=== PATIENT | female | born 1940 | race Caucasian/White ===

== ENCOUNTER → 2023-07-10 10:11 | Outpatient (REF) | payer MEDICARE, SELFPAY | LOC: HWRAD 10:11 | PROVIDERS: ATTENDING PHYSICIAN Internal Medicine Critical Care Medicine; FAMILY PHYSICIAN Family Medicine | DX: R91.8 Other nonspecific abnormal finding of lung field (principal); R93.89 Abnormal findings on diagnostic imaging of other specified body structures | CPT/HCPCS: 71250 ==

== ENCOUNTER → 2023-10-11 10:14 | Outpatient (REF) | payer MEDICARE, SELFPAY | LOC: HWRAD 10:14 | PROVIDERS: ATTENDING PHYSICIAN Internal Medicine Critical Care Medicine; FAMILY PHYSICIAN Family Medicine; REFERRING PHYSICIAN Internal Medicine Cardiovascular Disease | DX: R91.8 Other nonspecific abnormal finding of lung field (principal) | CPT/HCPCS: 71250 ==

== ENCOUNTER → 2024-04-11 10:13 | Outpatient (REF) | payer MEDICARE, SELFPAY | LOC: HWRAD 10:13 | PROVIDERS: ATTENDING PHYSICIAN Internal Medicine Critical Care Medicine; FAMILY PHYSICIAN Internal Medicine | DX: R91.8 Other nonspecific abnormal finding of lung field (principal) | CPT/HCPCS: 71250 ==

== ENCOUNTER → 2024-07-14 10:15 | Outpatient (REF) | payer MEDICARE, SELFPAY | LOC: HWRAD 10:15 | PROVIDERS: ATTENDING PHYSICIAN Internal Medicine Critical Care Medicine; FAMILY PHYSICIAN Internal Medicine | DX: R91.8 Other nonspecific abnormal finding of lung field (principal) | CPT/HCPCS: 71250 ==

== ENCOUNTER 2024-08-19 08:16 | Inpatient (IN) | payer MEDICARE, SELFPAY ==
[2024-08-11 14:01] VITALS: BMI 17.8
[2024-08-18] VITALS (29 sets, daily range): BP systolic 64–134; BP diastolic 44–90; BMI 17.8
[2024-08-18 10:26] LABS: Glucose - Point of Care 115 mg/dl (70-99)
[2024-08-18] MEDS: ZOFRAN 4 MG IV (11:55)
[2024-08-18] MEDS: OFIRMEV 100 IV (12:15)
[2024-08-18 12:41] LABS: Glucose - Point of Care 116 mg/dl (70-99)
[2024-08-18] MEDS: DUONEB 3 ML INH (17:36)
[2024-08-18] MEDS: PULMICORT 0.5 MG INH (17:37)
--- NOTE | 2024-08-18 19:47 | HPS.HSE ---
Family Physician
-
Family Physician: NO INTERVIEW UNKNOWN
Chief Complaint
-
SOB
History of Present Illness
Patient is an 84y F with PMH significant for COPD, ASCVD and DM-II who presents to for bronchoscopy / biopsy of suspicious CYNTHIA lesion. Patient notes that she has been following the lesion radiographically for > 20 years. Recently it increased
in size and was positive on PET scan. Patient was scheduled for robotic bronchoscopy with biopsy which was done today. Following the procedure, patient c/o SOB and was noted to be hypoxemic into the 80s. CXR showed moderate sized L pneumothorax.
IR evaluated the patient and aspirated the pneumothorax. No chest tube / catheter was maintained due to patient request.
Patient seen and examined in the PACU. She is resting comfortably. She complains of some discomfort in the L chest at the site of thoracentesis.
She denies any dyspnea. No recent cough, fevers / chills, etc.
Medical History
Past Medical History
Past Medical History: Reports Other
Additional Past Medical History:
ASCVD
Hypertension
DM-II
COPD
Diverticular Disease
Osteoporosis
GERD
Past Surgical History: Reports Other
Additional Past Surgical History:
Robotic Bronchoscopy with CYNTHIA Biopsy (08/18/24)
MACKENZIE / BSO
Appendectomy
Cholecystectomy
Left Foot ORIF
Pilonidal Cyst Excision
PTCA with Stent
Cataracts
Social History
Tobacco: Former Smoker (Quit smoking in 2008. > 40 pack years total use.)
Alcohol: Daily (1 glass wine daily.)
Drug: None
Family History
Family History: Other (Father: COPD Sister: Lung Cancer)
Allergies / Home Medications
Allergies reflects when Allergies were last updated in [facility].
Home Medications with original date entered in [facility]
Allergy/Medication List:
Allergies
Allergy/AdvReac Type Severity Reaction Status Date / Time
adhesive Allergy Peels Skin Verified 08/18/24 09:36
azithromycin [From Zithromax] Allergy Itching, Verified 08/18/24 09:36
Rash
latex Allergy Itching, Verified 08/18/24 09:36
Rash
levofloxacin [From Levaquin] Allergy Tendon Verified 08/18/24 09:36
Detachement
Penicillins Allergy Itching Verified 08/18/24 09:36
Home Medications
albuterol sulfate 90 mcg/actuation aerosol inhaler 2 puff inhalation PRN PRN SOB, Wheezes 08/12/24
biotin 5,000 mcg chewable tablet 25,000 mcg PO DAILY 08/12/24
budesonide-formoterol HFA 160 mcg-4.5 mcg/actuation aerosol inhaler (Symbicort) 2 puff inhalation BID 08/12/24
calcium carbonate (Tums) 200 mg PO PRN PRN GERD 08/12/24
cetirizine 10 mg tablet (Zyrtec) 10 mg PO HS 08/12/24
cholecalciferol (vitamin D3) 25 mcg (1,000 unit) tablet (Vitamin D3) 50 mcg PO DAILY 08/12/24
multivitamin 1 tab PO DAILY 08/12/24
pravastatin 10 mg tablet 10 mg PO HS 08/12/24
ramipril 2.5 mg capsule 2.5 mg PO HS 08/12/24
turmeric root extract 150 mg-cisco root extract 25 mg chewable tablet 3 tab PO DAILY 08/12/24
vit C 250 mg-vit E 90 mg-zinc 40 mg-copper 1 [id number] capsule (PreserVision AREDS-2) 1 tab PO BID 08/12/24
vitamin C 90 mg-zinc gluconate 15 mg-herbal complex no. 325 lozenges 1 shayne PO DAILY 08/12/24
Review of Systems
-
History Source: Patient
A 12 point ROS was completed and negative except as noted: Yes
Constitutional: Denies Fever, Fatigue or Chills
EENT: Denies Sore Throat
Respiratory: Denies Cough, Hemoptysis or Trouble Breathing
Cardiac: Reports Chest Pain; Denies Diaphoresis, Palpitations or Syncope
Abdomen/GI: Denies Abdominal Pain, Nausea, Vomiting or Diarrhea
: Denies Dysuria, Frequency or Flank Pain
Musculoskeletal: Denies Joint Pain or Edema
Neurological: Denies Dizzy or Headache
Physical Exam
Vital Signs
Vital Signs
Temp Pulse Resp BP Pulse Ox
98.9 F 91 20 132/62 92
08/18/24 17:50 08/18/24 17:37 08/18/24 17:37 08/18/24 17:30 08/18/24 18:50
Physical Exam
General: Other (84y F in no distress.)
HEENT: Moist mucous membranes and PERRLA
Respiratory: Clear; No Wheezes, Rales or Rhonchi
Cardiac: S1/S2 and Regular Rhythm; No Murmur
GI: Soft, Non Tender, Non Distended and Normal Bowel Sounds
Musculoskeletal: No Clubbing, No Cyanosis and No Edema
Neuro: AO x 3
Impression/Plan
-
A/P: Patient is an 84y F with PMH significant for ASCVD, HTN and DM-II who presents to for bronchoscopy and biopsy and developed post-procedure pneumothorax and hypoxemia.
s/p Robotic Bronchoscopy with CYNTHIA Biopsy
Post-Procedure Left Pneumothorax
Acute Hypoxemic Respiratory Insufficiency secondary to the above
- Observe overnight for further monitoring / treatment.
- Patient requested not to have chest tube / drainage catheter left in place after thoracentesis.
- Repeat CXR at 10PM this evening and in AM to document stability.
- Repeat imaging sooner if any increase in CP, dyspnea, etc.
- Supplemental O2 use.
COPD
- No active wheezing on exam.
- Patient reports that her baseline O2 has been high 90s - but falls to 87% with activity.
- Continue Symbicort.
- Albuterol PRN.
ASCVD
- Stable. No chest pain / dyspnea.
- Continue current CV med regimen.
DM-II
- Stable. Patient is not on any DM medications.
- Follow glucose and cover with SSI if needed.
- Update A1C.
DVT Prophylaxis: SCDs
Code Status: Full
[2024-08-18] MEDS: SYMBICORT 160/4.5 MCG INHALER 2 PUFF INH (20:35)
[2024-08-18] MEDS: TYLENOL 650 MG PO (20:55)
[2024-08-18] MEDS: ALTACE 2.5 MG PO (21:19)
[2024-08-18] MEDS: PRAVACHOL 10 MG PO (21:19)
[2024-08-18] MEDS: ZYRTEC 10 MG PO (21:20)
[2024-08-18] MEDS: TYLENOL 325 MG PO (23:51)
[2024-08-19 03:30] VITALS: BP 122/44
[2024-08-19] MEDS: VENTOLIN NEBULES 2.5 MG INH ×2 (03:40→19:31)
--- NOTE | 2024-08-19 03:40 | PTCARENOTE ---
20:15 08/18/24 pt rec'vd from PACU x3 with [address] via NC, pt able to self transfer to unit bed. Left upper side of back noted with a small foam with a pinpoint staining observed. Pt denies discomfort at this time, vs WNL.
[2024-08-19] MEDS: TYLENOL 650 MG PO ×2 (04:28→21:57)
[2024-08-19] MEDS: BenGay-Like 1 APPLIC TOPICAL ×3 (04:29→21:58)
[2024-08-19 06:00] VITALS: BMI 17.9
[2024-08-19 06:42] LABS: Hematocrit 34.5 % (37.0-47.0); Hemoglobin 11.7 g/dL (12.0-16.0); Mean Corp Hgb Conc. 33.9 g/dL (33.0-37.0); Mean Corpuscular Hgb 31.6 pg (27.0-31.0); Mean Corpuscular Volume 93.2 fL (81.0-99.0); Mean Platelet Volume 9.5 fL (7.4-10.4); Platelet Count 196 10^3/uL (130-400); Red Cell Dist. Width 12.9 % (11.5-14.5); White Blood Cell Count 9.7 10^3/uL (4.8-10.8)
[2024-08-19 07:01] LABS: Blood Urea Nitrogen 12 mg/dl (7-17); Calcium 8.9 mg/dl (8.4-10.2); Carbon Dioxide 28 mmol/L (22-30); Chloride 102 mmol/L (98-107); Estimated Creatinine Clearance 49 ml/min; Glucose 100 mg/dl (70-99); Sodium 135 mmol/L (135-145); eGFR > 60.00
[2024-08-19] MEDS: SYMBICORT 160/4.5 MCG INHALER 2 PUFF INH ×2 (07:22→19:31)
[2024-08-19 07:28] VITALS: BP 122/64
--- NOTE | 2024-08-19 08:34 | CM ---
CM reviewed medical records. Patient lives independently in a third floor apartment. Patient does not have ahistory of VN, SNF or DME. Patient is active with her PCP. Patient will use [facility] for medication services.
Patient's son is at bedside and stated that he lives 4 miles away and will provide support if needed. CM will continue to follow for needs.
PLAN: home with vn vs. Home with no needs.
[2024-08-19 08:41] LABS: Glucose - Point of Care 221 mg/dl (70-99)
[2024-08-19 09:22] LABS: Glycohemoglobin (HgbA1c) 5.7 % (4.0-5.6)
--- NOTE | 2024-08-19 11:15 | PTCARENOTE ---
Addendum entered by Mariposa Silverman RN 08/19/24 12:14:
08/19- Obtained 12lead EKG. 2EKGs showed Sinus Bradycardia with PVCs and PACs. PVCs and PACs observed in lateral leads. Physician aware.
Original Note:
08/19- Patient is anxious d/t not having her 'stack of credit cards and ID in the rubber band.' We found her cards and money in her purse a couple minutes later. Patient sustained VTach for 13 seconds on Telemetry which self-resolved to Sinus Tachy
within 20 seconds and back to NSR within 30seconds. Patient states being a little SOB but denies CP or dizziness/lightheadedness. AAOX3 but anxious. Educated on calming techniques, deep slow breathing. HR currently 89 NSR. Notified Physician.
Continue to monitor.
[2024-08-19 11:16] VITALS: BP 112/48
[2024-08-19 12:03] LABS: Glucose - Point of Care 110 mg/dl (70-99)
--- NOTE | 2024-08-19 12:16 | CON.PUL ---
Consultation
Consultation Request
Date/Time Consultation Requested: 08/19/2024
Date/Time Consultation Performed: 08/19/2024
Requesting Provider: Dr. Worthy
Performing Provider: Dr. Baron Olmos
Reason for Consultation: Left iatrogenic pneumothorax post bronchoscopy
Medical History
-
History of Present Illness:
84-year-old woman with history of COPD, coronary artery disease, type 2 diabetes who presented to [facility] for bronchoscopy for left upper lobe lung mass. Patient follows up with Dr. Salgado in our office. Lung nodule has been grown
recently. PET/CT showed FDG avidity. Bronchoscopy underwent on 08/18/2024. Postprocedure hypoxemic and short of breath. Found to have a at least moderate left pneumothorax. Evaluated by interventional radiology and underwent aspiration of the
pneumothorax.
Patient declined chest tube placement.
Currently denies any shortness of breath at rest.
She was able to ambulate to the restroom without significant discomfort.
Denies any chest pain per
Denies cough or phlegm production.
Past Medical History
Past Medical History: Other (See assessment and plan)
Social History
Tobacco: Former Smoker (Quit in April 2008. 40-qiow-edpb history.)
Alcohol: Daily (Right groin daily.)
Drug: None
Personal:
Employment: Retired
Family History
Family History: Reviewed & Not Pertinent
Allergies / Home Medications
Allergies
Allergy/AdvReac Type Severity Reaction Status Date / Time
adhesive Allergy Peels Skin Verified 08/18/24 09:36
azithromycin [From Zithromax] Allergy Itching, Verified 08/18/24 09:36
Rash
latex Allergy Itching, Verified 08/18/24 09:36
Rash
levofloxacin [From Levaquin] Allergy Tendon Verified 08/18/24 09:36
Detachement
Penicillins Allergy Itching Verified 08/18/24 09:36
Home Medications
�Medication �Instructions �Recorded �Confirmed �Last Taken �Type
albuterol sulfate 90 mcg/actuation 2 puff inhalation PRN PRN SOB, 08/12/24 08/18/24 08/18/24 08:30 History
aerosol inhaler Wheezes
biotin 5,000 mcg chewable tablet 25,000 mcg PO DAILY 08/12/24 08/18/24 08/11/24 History
budesonide-formoterol HFA 160 2 puff inhalation BID 08/12/24 08/18/24 08/18/24 08:30 History
mcg-4.5 mcg/actuation aerosol
inhaler (Symbicort)
calcium carbonate (Tums) 200 mg PO PRN PRN GERD 08/12/24 08/18/24 Unknown History
cetirizine 10 mg tablet (Zyrtec) 10 mg PO HS 08/12/24 08/18/24 08/17/24 19:30 History
cholecalciferol (vitamin D3) 25 50 mcg PO DAILY 08/12/24 08/18/24 08/11/24 History
mcg (1,000 unit) tablet (Vitamin
D3)
multivitamin 1 tab PO DAILY 08/12/24 08/18/24 08/11/24 History
pravastatin 10 mg tablet 10 mg PO HS 08/12/24 08/18/24 08/17/24 19:30 History
ramipril 2.5 mg capsule 2.5 mg PO HS 08/12/24 08/18/24 08/17/24 19:30 History
turmeric root extract 150 3 tab PO DAILY 08/12/24 08/18/24 08/11/24 History
mg-cisco root extract 25 mg
chewable tablet
vit C 250 mg-vit E 90 mg-zinc 40 1 tab PO BID 08/12/24 08/18/24 08/11/24 History
mg-copper 1 [id number]
capsule (PreserVision AREDS-2)
vitamin C 90 mg-zinc gluconate 15 1 shayne PO DAILY 08/12/24 08/18/24 08/11/24 History
mg-herbal complex no. 325 lozenges
Review of Systems
-
History Source: Patient
All other systems: Negative unless noted
Vitals / Labs / Diagnostic Testing
Vital Signs
Temp Pulse Resp BP Pulse Ox
98.1 F 58 17 112/48 100
08/19/24 11:16 08/19/24 11:16 08/19/24 11:16 08/19/24 11:16 08/19/24 11:16
Lab Data
08/19/24 06:02
08/19/24 06:02
Microbiology
08/18/24 11:34 Bronch Left Upper Lobe Respiratory Culture - Preliminary
NO GROWTH
08/18/24 11:34 Bronch Left Upper Lobe Gram Stain - Preliminary
08/18/24 11:34 Bronch Right Upper Lobe Respiratory Culture - Preliminary
NO GROWTH
08/18/24 11:34 Bronch Right Upper Lobe Gram Stain - Preliminary
08/18/24 11:35 Bronch Right Upper Lobe Fungal Culture - Preliminary
Culture in progress.
Positive cultures are reported as soon as detected.
Final report to follow in four to five weeks.
08/18/24 11:35 Bronch Left Upper Lobe Fungal Culture - Preliminary
Culture in progress.
Positive cultures are reported as soon as detected.
Final report to follow in four to five weeks.
Diagnostic Testing:
Physical Exam
-
HEENT: Normocephalic
Cardiovascular: S1/S2
Respiratory: Non-Labored Respirations and Other (No evidence for subcutaneous air)
GI: Soft and Non Distended
Neurology: Awake, Alert and No Motor Deficits
Skin: Warm
General: Comfortable
Assessment
-
84-year-old woman with history of COPD, former smoker who follows up with Dr. Salgado in our office. Excellent functional capacity. On Symbicort. Quit smoking in 2008. Admitted 08/18/2024 after undergoing robotic bronchoscopy with left upper lobe
lung biopsy. Complicated by iatrogenic pneumothorax. Patient declined chest tube placement and pneumothorax was aspirated. I was consulted for further evaluation.
Left iatrogenic pneumothorax post bronchoscopy 08/18/2024
Status post pneumo centesis-patient declined chest tube placement.
Status post left upper lung biopsy via robotic bronchoscopy.
Official pathology pending-preliminarily malignant.
4R lymph node biopsy performed
Other stations not enlarged.
PET/CT 08/01/2024:
1.7 cm hypermetabolic mass within the left upper lobe-no evidence of mediastinal abnormalities.
5 mm nodule anterior medial right upper lobe very mild metabolic activity SUV of 2.3.
No suspicious hypermetabolic abnormality in the pelvis and abdomen.
Mild right-sided hydronephrosis.
Conditions present prior admission:
COPD, FEV1 08/29/2023: 1.57 L or 107% of predicted/TLC 108% predicted
RV 90% predicted, DLCO 37% of predicted.
GERD
Coronary artery disease with prior myocardial infarction-history of prior stents.
Echocardiogram 02/07/2023: Normal LVEF. Significant valvular abnormalities
Osteoporosis
GERD
Hypertension
Diabetic retinopathy
Type 2 diabetes
Macular degeneration
History of bilateral salpingo-oophorectomy
Assessment and plan:
Iatrogenic left-sided pneumothorax post bronchoscopy 08/18/2024.
Patient declined chest tube placement-IR evaluated the patient and she underwent minimal centesis.
Chest x-ray this morning with slight increase in pneumothorax were still persistent.
Not tachycardic, not hypotensive.
Did have some known SVT on telemetry with ambulation.
Pulse ox decreased to 88%. Likely related to pneumothorax on top of her severe emphysema.
Her diffusion capacity in 2023 was less than 40.
-
Preliminarily possible carcinoma.
Official pathology pending.
PET/CT does not suggest distant metastatic disease. This is a slow-growing tumor as has been followed for years and recently had some growth.
She will not be a surgical candidate given severity of emphysema and DLCO under 40%.
-
Patient has high risk of recurrence given underlying significant emphysema. Would like to observe for additional 24 hours-repeat chest x-ray now.
Serial chest x-rays ordered-obtain chest x-ray now and possibly tonight at 9 PM and tomorrow morning.
If there is enlargement of pneumothorax chest tube will be indicated.
Discussed with patient in detail, she is reluctant to chest tube placement. I explained to her and her family that this is a high risk situation given significant emphysema and limited pulmonary reserve.
She is more agreeable if absolutely necessary.
For now continue Oxy supplementation to hopefully help with the reabsorption of pneumothorax.
-
Cough suppression
Continue telemetry monitoring.
-
This is a h high risk situation as the risk of recurrence is very high with significant emphysema.
-
--- NOTE | 2024-08-19 13:28 | W.PN.HOSP.TC ---
Today's Communication/Plan
-
Assessment / Plan
Assessment / Plan
NAD
Scleral Anicteric
MMM
No JVD
Diminished breath sounds left side
Without evidence of subcutaneous air on exam
RRR, S1/S2
Soft, NT, ND, BS+
Warm, Dry
Posterior left shoulder cracking
AAOx3
Calm
Iatrogenic left-sided pneumothorax post bronchoscopy 08/18
- S/p thoracentesis with IR, refused chest tube, on supplemental oxygen
Started 100% FiO2 to attempt to perform some of the these bronchoscopy gases to help inflate left lung
Pulmonary consulted
Adamant about not wanting a chest tube
On ambulation decreases to 88% likely related to pneumothorax on top of severe emphysema
Did have a 12 beat run of none sustained VT with ambulation as well again likely related to pneumothorax on top of severe emphysema
Nonsustained VT�12 beat
Monitor on telemetry
2D echocardiogram
Keep K greater than 4 magnesium greater than 2
So this is likely secondary to pneumothorax
Pulmonary nodule/mass
S/p bronchoscopies 08/18
Findings concerning for likely malignancy/neoplasm
Diabetes type 2
Sliding scale, Accu-Cheks, goal blood glucose 140-180, carb controlled
COPD
No active wheezing
Continue Symbicort
As needed albuterol
Goal SpO2 88 to 92%
Left-sided shoulder pain
Obtain shoulder x-ray
Nasal congestion
Start nasal saline
Without evidence of rhinorrhea sinus pain/pressure
Anticipated Discharge: > 48 hours
Subjective/Interval History
-
Date of Service: August 19, 2024
Seen and examined.
No new complaints. No acute overnight events.
Sitting on the side of the bed on nasal cannula without evidence of conversational dyspnea she was able to hold a conversation for approximately 45 minutes with me
States that she does not want a chest tube was arguing about being on 100% FiO2. States that if this does not work then she si going to go home
Objective Data
-
Labs:
Laboratory Results
08/19/24
06:02
WBC 9.7
Hgb 11.7 L
Hct 34.5 L
Plt Count 196
Sodium 135
Potassium 4.0
Chloride 102
Carbon Dioxide 28
BUN 12
Creatinine 0.5 L
Glucose 100 H
Calcium 8.9
Vital Signs:
Vital Signs
Temp Pulse Resp BP Pulse Ox
98.1 F 58 17 112/48 100
08/19/24 11:16 08/19/24 11:16 08/19/24 11:16 08/19/24 11:16 08/19/24 11:16
I&O
08/18/24 08/19/24 08/20/24
06:59 06:59 06:59
Intake Total 480 / 480 1080 / 1080
Balance 480 / 480 1080 / 1080
[2024-08-19 15:18] VITALS: BP 137/57
[2024-08-19 15:59] LABS: Glucose - Point of Care 105 mg/dl (70-99)
[2024-08-19 19:15] VITALS: BP 133/60
[2024-08-19 21:50] LABS: Glucose - Point of Care 98 mg/dl (70-99)
[2024-08-19] MEDS: ZYRTEC 10 MG PO (21:58)
[2024-08-19] MEDS: PRAVACHOL 10 MG PO (21:58)
[2024-08-19] MEDS: ALTACE 2.5 MG PO (21:58)
[2024-08-19 23:32] VITALS: BP 124/57
[2024-08-20 03:15] VITALS: BP 126/50
[2024-08-20 06:00] VITALS: BMI 18.7
[2024-08-20 07:11] LABS: Hematocrit 38.1 % (37.0-47.0); Hemoglobin 12.9 g/dL (12.0-16.0); Mean Corp Hgb Conc. 33.9 g/dL (33.0-37.0); Mean Corpuscular Hgb 32.3 pg (27.0-31.0); Mean Corpuscular Volume 95.3 fL (81.0-99.0); Mean Platelet Volume 9.7 fL (7.4-10.4); Platelet Count 210 10^3/uL (130-400); White Blood Cell Count 7.6 10^3/uL (4.8-10.8)
[2024-08-20 07:20] VITALS: BP 139/60
[2024-08-20 07:27] LABS: Blood Urea Nitrogen 10 mg/dl (7-17); Calcium 8.9 mg/dl (8.4-10.2); Carbon Dioxide 27 mmol/L (22-30); Chloride 102 mmol/L (98-107); Estimated Creatinine Clearance 51 ml/min; Glucose 97 mg/dl (70-99); Potassium 4.1 mmol/L (3.5-5.1); Sodium 137 mmol/L (135-145); eGFR > 60.00
[2024-08-20] MEDS: SYMBICORT 160/4.5 MCG INHALER 2 PUFF INH (07:54)
[2024-08-20 08:08] LABS: Glucose - Point of Care 134 mg/dl (70-99)
[2024-08-20 11:10] VITALS: BP 127/76
--- NOTE | 2024-08-20 11:10 | RESPNOTE ---
Refusing non-rebreather mask at this time states ' it doesn't do me any good.' Explained the patient the reasoning behind the mask, she confirms she understands and her son is bedside. Dr Olmos notified and will reach out with further
recommendations. HERB Monge notified as well. Patient remains comfortable on 2 liters sitting in bed drinking coffee and eating fruit.
--- NOTE | 2024-08-20 11:53 | RESPNOTE ---
Patient now agreeable to non rebreather mask since I was able to find pediatric one. Patient was resting comfortable in bed on 2 liters -95%, when placed on non rebreather 100%. Family at bedside awaiting Pulmonary
--- NOTE | 2024-08-20 11:57 | PTCARENOTE ---
Dr. Worthy instructed RN to place patient on 100% non-rebreather despite patient be 95% on 2 L NC. Repiratory therapist made aware.
[2024-08-20 12:06] LABS: Glucose - Point of Care 137 mg/dl (70-99)
--- NOTE | 2024-08-20 12:56 | W.PN.PUL3 ---
Today's Communication / Plan
-
Discharge
Pneumothorax precautions given to patient. High risk of recurrence discussed with family in detail.
2-week follow-up with Dr. Salgado.
Sign off
Assessment
-
84-year-old woman with history of COPD, former smoker who follows up with Dr. Salgado in our office. Excellent functional capacity. On Symbicort. Quit smoking in 2008. Admitted 08/18/2024 after undergoing robotic bronchoscopy with left upper lobe
lung biopsy. Complicated by iatrogenic pneumothorax. Patient declined chest tube placement and pneumothorax was aspirated. I was consulted for further evaluation.
Left iatrogenic pneumothorax post bronchoscopy 08/18/2024
Status post pneumo centesis-patient declined chest tube placement.
Status post left upper lung biopsy via robotic bronchoscopy.
Official pathology pending-preliminarily malignant.
4R lymph node biopsy performed
Other stations not enlarged.
PET/CT 08/01/2024:
1.7 cm hypermetabolic mass within the left upper lobe-no evidence of mediastinal abnormalities.
5 mm nodule anterior medial right upper lobe very mild metabolic activity SUV of 2.3.
No suspicious hypermetabolic abnormality in the pelvis and abdomen.
Mild right-sided hydronephrosis.
Conditions present prior admission:
COPD, FEV1 08/29/2023: 1.57 L or 107% of predicted/TLC 108% predicted
RV 90% predicted, DLCO 37% of predicted.
GERD
Coronary artery disease with prior myocardial infarction-history of prior stents.
Echocardiogram 02/07/2023: Normal LVEF. Significant valvular abnormalities
Osteoporosis
GERD
Hypertension
Diabetic retinopathy
Type 2 diabetes
Macular degeneration
History of bilateral salpingo-oophorectomy
Assessment and plan:
Iatrogenic left-sided pneumothorax post bronchoscopy 08/18/2024.
Patient declined chest tube placement-IR evaluated the patient and she underwent minimal centesis.
Chest x-ray 08/19/2024 and 08/20/2024 with stable small left basilar pneumothorax.
No subcutaneous air
Not tachycardic, not hypotensive.
Denies shortness of breath.
Did have some known SVT on telemetry with ambulation.
-
Pulse ox has been over 90% on room air.
Oxygen has been provided to help with pneumothorax reabsorption.
-
Preliminarily possible carcinoma.
Official pathology pending as of 08/20/2024.
PET/CT does not suggest distant metastatic disease. This is a slow-growing tumor as has been followed for years and recently had some growth.
She will not be a surgical candidate given severity of emphysema and DLCO under 40%.
-
Patient has high risk of recurrence given underlying significant emphysema. Discussed with family members.
Chest x-ray has been stable for over 24 hours.
Patient is relatively asymptomatic send
She would like to go home.
Not tachycardic.
Not hypoxemic
Baseline functional capacity.
Advised not to exercise for at least 1 week. No prolonged walking, no straining.
I strongly advised family members to have someone move in with her for at least 3 to 4 days to assure that there is no reoccurrence.
If there is worsening shortness of breath, chest pain or any respiratory symptoms to immediately come to the emergency room for evaluation.
If there is pneumothorax recurrence patient will need a chest tube placement. She understands that and she is agreeable if there is recurrence.
-
Outpatient follow-up in [address] Salgado.
-
This is a h high risk situation as the risk of recurrence is very high with significant emphysema-patient and family understand.
Patient would like to go home
Okay to discharge today. Is with primary team.
-
Subjective Data
-
Date of Service:
Date of Service: August 20, 2024
Chief Complaint: Pulmonary Follow Up (Iatrogenic pneumothorax)
Subjective:
Asymptomatic-patient states that she is baseline.
No oxygen requirements
Denies chest pain
Was able to ambulate to the restroom without significant discomfort.
Review of Systems
Cardiopulmonary: Dyspnea (n) and Dyspnea on Exertion (n)
Objective Data
Data Reviewed
Vital Signs / I&O / Oxygen:
Vital Signs
Temp Pulse Resp BP Pulse Ox
97.9 F 67 18 127/76 95
08/20/24 11:10 08/20/24 11:10 08/20/24 11:10 08/20/24 11:10 08/20/24 11:10
Intake and Output
08/19/24 08/20/24 08/21/24
06:59 06:59 06:59
Intake Total 480 / 480 1360 / 1360 740 / 740
Balance 480 / 480 1360 / 1360 740 / 740
SaO2 95
Nasal Cannula flow liters per 2
minute
Labs/Micro/Reports
Lab Data
08/20/24 06:07
08/20/24 06:07
Microbiology
08/18/24 11:34 Bronch Right Upper Lobe Respiratory Culture - Final
NO GROWTH
08/18/24 11:34 Bronch Right Upper Lobe Gram Stain - Final
08/18/24 11:34 Bronch Left Upper Lobe Respiratory Culture - Final
NO GROWTH
08/18/24 11:34 Bronch Left Upper Lobe Gram Stain - Final
08/18/24 11:35 Bronch Right Upper Lobe Fungal Culture - Preliminary
Culture in progress.
Positive cultures are reported as soon as detected.
Final report to follow in four to five weeks.
08/18/24 11:35 Bronch Left Upper Lobe Fungal Culture - Preliminary
Culture in progress.
Positive cultures are reported as soon as detected.
Final report to follow in four to five weeks.
--- NOTE | 2024-08-20 13:38 | HOSPNOTE ---
Long discussion with family about code status and rehospitalization. At this time the patient wants to remain a full code and fully understands what that means. The plan is for patient to go home with VN/PT/OT. CM aware and will send referral. I
know this family personally and the son asked me to come and speak with patient.
--- NOTE | 2024-08-20 14:14 | CM ---
Cm met with patient. She is agreeable to [facility]. Referral sent to [facility] Admission RN>
PLAN: home with [facility] and family support.
--- NOTE | 2024-08-20 14:20 | W.DCSUMMARY ---
Discharge Summary
Discharge Data
Date of Admission: 08/19/24
Date of Discharge: 08/20/24
-
Pending Results: No
Hospital Course
84y F with PMH significant for COPD, CAD and DM-II
Presented with shortness of breath and hypoxia into the 80s after completing bronchoscopy with biopsy subsequently developing a left-sided pneumothorax. Was evaluated by IR in the ED performed in thoracentesis/aspiration of the left thoracic
cavity. Subsequent repeat chest x-rays continue to demonstrate small to moderate size left-sided pneumothorax. It was recommended for chest tube placement however adamantly declined and therefore was maintained on supplemental oxygen along with
100% FiO2 in order to help absorb the pneumothorax. Eventually supplemental oxygen was weaned off and did not require/qualify for home O2. Should be noted pulmonary and myself had multiple discussions about chest tube placement however adamantly
continued to decline. Additionally should be noted discussed possibilities of respiratory distress and cardiac arrest. Everyone understood the risk. Pulmonary even went on to say that there is a high risk of recurrence given underlying
significant emphysema. Chest x-ray has remained stable for over 24-hours. Additionally, had a run of nonsustained ventricular tachycardia that was likely believed to be secondary to pneumothorax. For complete is a 2D ultrasound of the heart was
completed that was a technically difficult study however normal left ventricular size and function with a EF of 55 to 60% without regional wall motion abnormalities. Noted to have an estimated PASP of 41 which is likely related to history of
COPD/emphysema along with pneumothorax. Echocardiogram from January 2023 there was no significant change. Throughout the hospitalization remained adamant for discharge home and declined chest tube placement multiple times.
2d echo
CONCLUSIONS
Technically limited study with poor parasternal and apical views.
Normal left ventricular size and systolic function. No regional wall motion
abnormalities are seen. LV ejection fraction is 55-60% by visual assessment.
Trileaflet aortic valve. Thickened calcified aortic valve with normal leaflet
excursion. Trace aortic regurgitation.
Tricuspid valve opens normally. Mild tricuspid regurgitation. Estimated
pulmonary artery pressure of 41 mmHg assuming a right atrial pressure of 3
mmHg.
Since echocardiogram January 2023, there is no significant change but current
study is technically limited.
CXR
IMPRESSION:
Small to moderate predominantly left basilar pneumothorax without significant change.
Shoulder Xray
IMPRESSION: Mild degenerative change of the left glenohumeral joint.
Truncation of the distal left clavicle, suggestive of previous partial resection.
No evidence for fracture or dislocation.
Seen and examined the day of discharge which was 08/20/2024
No chest pain. dizziness
No new complaints. no acute overnight events
NAD
Scleral Anicteric
MMM
No JVD
Diminished breath sounds in the left lower lobe however good aeration in left upper lobe, good aeration throughout right upper and lower lobe
RRR, S1/S2
Soft, NT, ND, BS+
Warm, Dry
AAOx3
Calm
Acute hypoxic respiratory failure secondary to iatrogenic left-sided pneumothorax post bronchoscopy 08/18
- S/p thoracentesis with IR, refused chest tube, on supplemental oxygen
Started 100% FiO2 to attempt to perform some of the these bronchoscopy gases to help inflate left lung
Pulmonary consulted
Adamant about not wanting a chest tube
On ambulation decreases to 88% likely related to pneumothorax on top of severe emphysema
Did have a 12 beat run of none sustained VT with ambulation as well again likely related to pneumothorax on top of severe emphysema
Per pulmonary does not require home o2.
Nonsustained VT�12 beat
Monitor on telemetry
2D echocardiogram
Keep K greater than 4 magnesium greater than 2
So this is likely secondary to pneumothorax
Pulmonary nodule/mass
S/p bronchoscopies 08/18
Findings concerning for likely malignancy/neoplasm
Diabetes type 2
Sliding scale, Accu-Cheks, goal blood glucose 140-180, carb controlled
COPD
No active wheezing
Continue Symbicort
As needed albuterol
Goal SpO2 88 to 92%
Left-sided shoulder pain
Obtain shoulder x-ray
Nasal congestion
Start nasal saline
Without evidence of rhinorrhea sinus pain/pressure
More than 30 minutes spent in discharge including
Final examination of the patient
Summarizing hospital stay
Instructions for continuing care to all relevant caregivers
Preparation of discharge records, prescriptions, and referral forms
Total time spent (in minutes): 33mins
Discharge Plan
-
Patient Disposition: Home with Home Care
Discharge Diagnosis/Procedures: Iatrogenic left-sided pneumothorax post bronchoscopy
Condition: Fair
Diet: As tolerated
Activity: As tolerated
Activity Restrictions/Additional Instructions:
Presented with shortness of breath and hypoxia into the 80s after completing bronchoscopy with biopsy subsequently developing a left-sided pneumothorax. Was evaluated by IR in the ED performed in thoracentesis/aspiration of the left thoracic
cavity. Subsequent repeat chest x-rays continue to demonstrate small to moderate size left-sided pneumothorax. It was recommended for chest tube placement however adamantly declined and therefore was maintained on supplemental oxygen along with
100% FiO2 in order to help absorb the pneumothorax. Eventually supplemental oxygen was weaned off and did not require/qualify for home O2. Should be noted pulmonary and myself had multiple discussions about chest tube placement however adamantly
continued to decline. Additionally should be noted discussed possibilities of respiratory distress and cardiac arrest. Everyone understood the risk. Pulmonary even went on to say that there is a high risk of recurrence given underlying
significant emphysema. Chest x-ray has remained stable for over 24-hours. Additionally, had a run of nonsustained ventricular tachycardia that was likely believed to be secondary to pneumothorax. For complete is a 2D ultrasound of the heart was
completed that was a technically difficult study however normal left ventricular size and function with a EF of 55 to 60% without regional wall motion abnormalities. Noted to have an estimated PASP of 41 which is likely related to history of
COPD/emphysema along with pneumothorax. Echocardiogram from January 2023 there was no significant change. Throughout the hospitalization remained adamant for discharge home and declined chest tube placement multiple times.
2d echo
CONCLUSIONS
Technically limited study with poor parasternal and apical views.
Normal left ventricular size and systolic function. No regional wall motion
abnormalities are seen. LV ejection fraction is 55-60% by visual assessment.
Trileaflet aortic valve. Thickened calcified aortic valve with normal leaflet
excursion. Trace aortic regurgitation.
Tricuspid valve opens normally. Mild tricuspid regurgitation. Estimated
pulmonary artery pressure of 41 mmHg assuming a right atrial pressure of 3
mmHg.
Since echocardiogram January 2023, there is no significant change but current
study is technically limited.
CXR
IMPRESSION:
Small to moderate predominantly left basilar pneumothorax without significant change.
Shoulder Xray
IMPRESSION: Mild degenerative change of the left glenohumeral joint.
Truncation of the distal left clavicle, suggestive of previous partial resection.
No evidence for fracture or dislocation.
Referrals:
Bolivar Salgado MD [Active] - in two weeks
UNKNOWN,NO INTERVIEW [Family Provider] -
Prescriptions:
Continued
multivitamin Tablet
1 tab PO DAILY
calcium carbonate [Tums] 200 mg calcium (500 mg) Tablet,Chewable
200 mg PO PRN PRN (Reason: GERD)
cholecalciferol (vitamin D3) [Vitamin D3] 25 mcg (1,000 unit) Tablet
50 mcg PO DAILY
PreserVision AREDS-2 250-90-40-1 mg Capsule
1 tab PO BID
turmeric root-cisco root ext 150-25 mg Tablet,Chewable
3 tab PO DAILY
vit C-Zn gluc-herbal no.325 90-15 mg Lozenge
1 shayne PO DAILY
biotin 5,000 mcg Tablet,Chewable
25,000 mcg PO DAILY
albuterol sulfate 90 mcg/actuation Hfa Aerosol Inhaler
2 puff INHALATION PRN PRN (Reason: SOB, Wheezes)
budesonide-formoterol [Symbicort] 160-4.5 mcg/actuation Hfa Aerosol Inhaler
2 puff INHALATION BID
cetirizine [Zyrtec] 10 mg Tablet
10 mg PO HS
pravastatin 10 mg Tablet
10 mg PO HS
ramipril 2.5 mg Capsule
2.5 mg PO HS
Discharge Orders:
Discharge Patient (As Directed); Ordered 08/20/24
Ordered By: Chiki Worthy
Discharge Date and Time
Print Language: ARABIC
[2024-08-20 15:05] VITALS: BP 108/64
--- NOTE | 2024-08-20 15:20 | VNURNOTE ---
Home Health Liaison met with patient and son at bedside to discuss [facility] nurse/therapy, visits, schedule and homebound status. Both are agreeable and understand that visits at home will be 2-3 x per week to assess and teach medical management. Both
are aware that [facility] will contact them for start of care in 1-2 days after discharge from . Pet policy reviewed.
[facility] referral completed in Care Port.
--- NOTE | 2024-08-20 15:28 | PTCARENOTE ---
Prior to removing tele monitor for discharge, patient was in NSR. Oxygen sat on RA was 92-93%. Patient denies SOB/dizziness/chestpain at this time. Patient discharged with son.
== END 2024-08-20 15:00 | disposition home health service (06) | DRG 199 ==
LOC: 2 SOUTH 08:16
PROVIDERS: Hospitalist; Internal Medicine Critical Care Medicine; Radiology Vascular & Interventional Radiology; ADMITTING PHYSICIAN Hospitalist; CONSULT PHYSICIAN Internal Medicine Critical Care Medicine
PROC: 0W983ZZ Drainage of Chest Wall, Percutaneous Approach (ICD-10-PCS; 2024-08-18)
PROC: 0B9C8ZX Drainage of Right Upper Lung Lobe, Via Natural or Artificial Opening Endoscopic, Diagnostic (ICD-10-PCS; 2024-08-18)
PROC: 07D78ZX Extraction of Thorax Lymphatic, Via Natural or Artificial Opening Endoscopic, Diagnostic (ICD-10-PCS; 2024-08-18)
PROC: 0BD88ZX Extraction of Left Upper Lobe Bronchus, Via Natural or Artificial Opening Endoscopic, Diagnostic (ICD-10-PCS; 2024-08-18)
PROC: 0B9G8ZX Drainage of Left Upper Lung Lobe, Via Natural or Artificial Opening Endoscopic, Diagnostic (ICD-10-PCS; 2024-08-18)
PROC: 0BDG8ZX Extraction of Left Upper Lung Lobe, Via Natural or Artificial Opening Endoscopic, Diagnostic (ICD-10-PCS; 2024-08-18)
DX: J95.811 Postprocedural pneumothorax (principal); J96.01 Acute respiratory failure with hypoxia; I47.10 Supraventricular tachycardia, unspecified; I47.20 Ventricular tachycardia, unspecified; J43.9 Emphysema, unspecified; I25.10 Atherosclerotic heart disease of native coronary artery without angina pectoris; E11.319 Type 2 diabetes mellitus with unspecified diabetic retinopathy without macular edema; I35.8 Other nonrheumatic aortic valve disorders; Z87.891 Personal history of nicotine dependence; K21.9 Gastro-esophageal reflux disease without esophagitis; I25.2 Old myocardial infarction; M81.0 Age-related osteoporosis without current pathological fracture; I10 Essential (primary) hypertension; H35.30 Unspecified macular degeneration; Z79.899 Other long term (current) drug therapy; Z80.1 Family history of malignant neoplasm of trachea, bronchus and lung; Z82.5 Family history of asthma and other chronic lower respiratory diseases; Z95.5 Presence of coronary angioplasty implant and graft
CPT/HCPCS: 88173; 88305; 32557; 71045; 71046; 73030; 76000; 80048; 81459; 82962; 83036; 85027; 87015; 87070; 87102; 87116; 87205; 88112; 88333; 88341; 88342; 93005; 93306; 94640; C1887

== ENCOUNTER → 2025-02-19 10:20 | Outpatient (REF) | payer MEDICARE, SELFPAY | LOC: HWRAD 10:20 | PROVIDERS: ATTENDING PHYSICIAN Internal Medicine Critical Care Medicine; FAMILY PHYSICIAN Internal Medicine | DX: C34.90 Malignant neoplasm of unspecified part of unspecified bronchus or lung (principal); R91.8 Other nonspecific abnormal finding of lung field | CPT/HCPCS: 71250 ==